=== PATIENT | female | born 1940 | race Caucasian/White ===

== ENCOUNTER 2017-02-11 07:26 | Day surgery (SDC) | payer OTHER ==
[~2017-02-11] VITALS: Ht 154.9 cm; Wt 92.5 kg
[~2017-02-11 07:26] MED LIST: ALEVE220 MG PO; AMLODIPINE BESYL5 MG PO; AMOX TR-K CLV1 EAC4 PO; APRESOLINE50 MG PO; ARICEPT10 MG PO; BACTRIM,SEPT1 TABLET PO; BENADRYL25 MG PO; BISACODYL5 MG PO; CALCIUM 600 +1 EAC3 PO; CEFTIN500 MG PO; COGENTIN1 MG PO; COUMADIN3 MG PO; CYANOCOBALAM1000 MCG PO; Cogentin PO; DUONEB 2.5-0.5 M3 ML AEROSOL; DuoNeb IH; FERROUS SULFAT325 MG PO; FLEXERIL5 MG PO; FOLIC ACID1 MG PO; FUROSEMIDE20 MG PO; HALDOL2 MG PO; HYDROCHLOROTHIA25 MG PO; HYDROCODON-ACE1 EAC7 PO; Haldol PO; IRON SUPPLEMEN325 MG PO; KEFLEX500 MG PO; LASIX20 MG PO; LEVOTHROID50 MCG PO; LOSARTAN POTAS100 MG PO; MIRTAZAPINE7.5 MG PO; NAPROSYN250 MG PO; NORCO 5/3251 TABLET PO; OMEPRAZOLE20 MG PO; PANTOPRAZOLE SO40 MG PO; PRESERVISION T1 EACH PO; PRILOSEC20 MG PO; TYLENOL EXTRA500 MG PO; TYLENOL REGULA325 MG PO; Tylenol Regular Stre PO; ZOFRAN ODT8 MG PO; ZOFRAN4 MG PO
[2017-02-11 07:58] VITALS: BP 136/77
[2017-02-11 09:03] LABS: METH RESISTANT S AUREUS PCR NEGATIVE (NEGATIVE)
[2017-02-11 09:04] LABS: PROBE CHECK PASS; SPECIMEN PROCESSING CONTROL PASS
[2017-02-11 11:26] VITALS: BP 145/73
== END 2017-02-11 12:20 ==
LOC: SDC 07:26
PROVIDERS: Orthopaedic Surgery Hand Surgery
PROC: 0LN80ZZ Release Left Hand Tendon, Open Approach (ICD-10-PCS; principal; 2017-02-11)
PROC: 0RSXXZZ Reposition Left Finger Phalangeal Joint, External Approach (ICD-10-PCS; principal; 2017-02-11)
DX: M65.342 Trigger finger, left ring finger (principal); M65.352 Trigger finger, left little finger; M24.542 Contracture, left hand; M65.842 Other synovitis and tenosynovitis, left hand; M79.642 Pain in left hand; C91.10 Chronic lymphocytic leukemia of B-cell type not having achieved remission; I44.2 Atrioventricular block, complete; Z95.0 Presence of cardiac pacemaker; K21.9 Gastro-esophageal reflux disease without esophagitis; I10 Essential (primary) hypertension; Z86.718 Personal history of other venous thrombosis and embolism; Z88.8 Allergy status to other drugs, medicaments and biological substances
CPT/HCPCS: 87641; S0020